=== PATIENT | male | born 1990 | race Caucasian/White ===

== ENCOUNTER 2017-01-12 10:23 | Observation (INO) | payer OTHER ==
[~2017-01-12] VITALS: Ht 170.2 cm; Wt 65.0 kg
[2017-01-12 10:56] LABS: DAU SCREEN DISCLAIMER
[2017-01-12 11:03] LABS: BLOOD UREA NITROGEN 11 mg/dL (7-18)
[2017-01-12 11:05] LABS: HEMOGLOBIN 18.5 g/dL (13.7-18.0); WHITE BLOOD COUNT 19.8 x10^3/uL (3.4-10)
[2017-01-12 11:06] LABS: ACETAMINOPHEN < 2 mcg/mL (10-30); DIFF TOTAL CELLS COUNTED 100 CELL DIFF
[2017-01-12 11:07] LABS: VERIFY COUNTS? YES
[2017-01-12 11:08] LABS: LARGE PLATELETS 2+
[2017-01-12] MEDS ORDERED: MIDAZOLAM 1 MG/ML, 5ML ONE (13:18)
[2017-01-12] MEDS ORDERED: ZIPRASIDONE 20 MG INJ IM ONE (14:00)
[2017-01-12] MEDS ORDERED: MIDAZOLAM 1 MG/ML, 5ML IVPush ONE (14:00)
[2017-01-12] MEDS ORDERED: HALOPERIDOL 5 MG/ML IM PRN (15:00)
[2017-01-12] MEDS ORDERED: LORazepam 2 MG/ML, 1ML IM PRN (15:00)
[2017-01-12 15:04] LABS: ASPARTATE AMINO TRANSFERASE 73 U/L (15-37); BLOOD UREA NITROGEN 13 mg/dL (7-18)
[2017-01-12 15:30] LABS: HEMATOCRIT 50.5 % (39.2-51.8); HEMOGLOBIN 17.6 g/dL (13.7-18.0); WHITE BLOOD COUNT 14.6 x10^3/uL (3.4-10)
[2017-01-12 15:31] LABS: LARGE PLATELETS 2+
[2017-01-12] MEDS ORDERED: HALOPERIDOL 5 MG/ML ONE (16:24)
[2017-01-12] MEDS ORDERED: LORazepam 1MG TABLET ONE (18:32)
[2017-01-12] MEDS: LORazepam 1MG TABLET PO PRN (19:06)
[2017-01-12] MEDS ORDERED: OLANZAPINE 5 MG TABLET PO SCH (21:00)
[2017-01-13] MEDS ORDERED: DIPHENHYDRAMINE 50 MG CAPSULE PO PRN (01:00)
[2017-01-13] MEDS ORDERED: ZIPRASIDONE 20 MG INJ IM PRN (01:00)
[2017-01-13] MEDS ORDERED: ONDANSETRON ODT 4 MG PO PRN (01:00)
[2017-01-13 02:24] VITALS: BP 125/83
[2017-01-13] MEDS: OLANZAPINE 5 MG TABLET PO SCH ×4 (02:27→20:33)
[2017-01-13 08:06] VITALS: BP 138/85
[2017-01-13] MEDS: POTASSIUM CHLORIDE 20 MEQ TAB.ER.PRT PO SCH ×2 (09:05→16:50)
[2017-01-13] MEDS: LORazepam 1MG TABLET PO PRN (09:18)
[2017-01-13] MEDS: ACETAMINOPHEN 325 MG TABLET PO PRN ×2 (09:18→20:32)
[2017-01-13 19:58] VITALS: BP 127/77
[2017-01-14 06:12] LABS: HEMATOCRIT 48.4 % (39.2-51.8); HEMOGLOBIN 16.5 g/dL (13.7-18.0); WHITE BLOOD COUNT 7.4 x10^3/uL (3.4-10)
[2017-01-14 06:22] LABS: BLOOD UREA NITROGEN 17 mg/dL (7-18)
[2017-01-14 06:25] LABS: ASPARTATE AMINO TRANSFERASE 154 U/L (15-37)
[2017-01-14 08:26] VITALS: BP 119/79
[2017-01-14] MEDS: OLANZAPINE 5 MG TABLET PO SCH ×2 (08:27→20:23)
[2017-01-14 20:00] VITALS: BP 109/75
[2017-01-15 07:26] VITALS: BP 136/76
[2017-01-15 07:31] LABS: BLOOD UREA NITROGEN 15 mg/dL (7-18)
[2017-01-15 07:37] LABS: ASPARTATE AMINO TRANSFERASE 117 U/L (15-37)
[2017-01-15 08:28] LABS: DIFF TOTAL CELLS COUNTED 100 CELL DIFF; HEMATOCRIT 48.5 % (39.2-51.8); HEMOGLOBIN 16.7 g/dL (13.7-18.0); WHITE BLOOD COUNT 7.6 x10^3/uL (3.4-10)
[2017-01-15 08:33] LABS: VERIFY COUNTS? YES
[2017-01-15 08:34] LABS: LARGE PLATELETS 2+
[2017-01-15] MEDS: PALIPERIDONE 3 MG TAB.ER.24 PO SCH ×2 (08:56→11:31)
[2017-01-15 19:26] VITALS: BP 123/89
[2017-01-16 08:00] VITALS: BP 121/80
[2017-01-16] MEDS: PALIPERIDONE 3 MG TAB.ER.24 PO SCH (08:10)
[2017-01-16] MEDS ORDERED: GADOBUTROL 7.5 MMOL/7.5 ML PFS ONE (12:31)
[2017-01-16 19:16] VITALS: BP 114/77
[2017-01-17 08:14] VITALS: BP 126/77
[2017-01-17] MEDS: PALIPERIDONE 3 MG TAB.ER.24 PO SCH (09:02)
[2017-01-17 15:39] LABS: HEMATOCRIT 48.4 % (39.2-51.8); HEMOGLOBIN 16.6 g/dL (13.7-18.0); WHITE BLOOD COUNT 5.7 x10^3/uL (3.4-10)
[2017-01-17 15:44] LABS: BLOOD UREA NITROGEN 13 mg/dL (7-18)
[2017-01-17 15:48] LABS: ASPARTATE AMINO TRANSFERASE 88 U/L (15-37)
[2017-01-17 20:00] VITALS: BP 114/66
[2017-01-18 05:50] LABS: BLOOD UREA NITROGEN 16 mg/dL (7-18)
[2017-01-18 05:58] LABS: ASPARTATE AMINO TRANSFERASE 74 U/L (15-37)
[2017-01-18 06:06] LABS: HEMOGLOBIN 16.1 g/dL (13.7-18.0); WHITE BLOOD COUNT 7.2 x10^3/uL (3.4-10)
[2017-01-18 08:45] VITALS: BP 122/76
[2017-01-18] MEDS: THIAMINE 100MG TABLET PO SCH (09:11)
[2017-01-18] MEDS: FOLIC ACID 1 MG TABLET PO SCH (09:11)
[2017-01-18] MEDS: PALIPERIDONE 3 MG TAB.ER.24 PO SCH (09:11)
[2017-01-18 19:58] VITALS: BP 114/80
[2017-01-19 08:29] VITALS: BP 119/67
[2017-01-19] MEDS: THIAMINE 100MG TABLET PO SCH (09:18)
[2017-01-19] MEDS: FOLIC ACID 1 MG TABLET PO SCH (09:18)
[2017-01-19] MEDS: PALIPERIDONE 3 MG TAB.ER.24 PO SCH (09:19)
[2017-01-19 19:13] VITALS: BP 119/82
[2017-01-20 05:37] LABS: HEMATOCRIT 45.9 % (39.2-51.8); HEMOGLOBIN 15.9 g/dL (13.7-18.0); WHITE BLOOD COUNT 7.7 x10^3/uL (3.4-10)
[2017-01-20 05:59] LABS: ASPARTATE AMINO TRANSFERASE 32 U/L (15-37); BLOOD UREA NITROGEN 14 mg/dL (7-18)
[2017-01-20 07:54] VITALS: BP 115/72
[2017-01-20] MEDS: THIAMINE 100MG TABLET PO SCH (09:15)
[2017-01-20] MEDS: PALIPERIDONE 3 MG TAB.ER.24 PO SCH (09:15)
[2017-01-20] MEDS: FOLIC ACID 1 MG TABLET PO SCH (09:15)
[2017-01-20] MEDS ORDERED: INVEGA SUSTENNA 234 MG IM ONE (12:00)
== END 2017-01-20 14:00 ==
LOC: ED 13:22 → EDIP 13:30 → 3E 01-13 01:31
PROVIDERS: ADMIT Hospitalist; ATTEND Family Medicine
DX: R45.851 Suicidal ideations (principal); R45.850 Homicidal ideations; F20.9 Schizophrenia, unspecified; E87.6 Hypokalemia; D72.829 Elevated white blood cell count, unspecified; N17.9 Acute kidney failure, unspecified; K76.9 Liver disease, unspecified; F32.9 Major depressive disorder, single episode, unspecified; D69.6 Thrombocytopenia, unspecified; F17.200 Nicotine dependence, unspecified, uncomplicated
CPT/HCPCS: 36415; 70450; 70553; 76700; 80048; 80053; 80307; 80329; 81001; 82040; 82140; 82550; 83735; 84443; 85025; 85610; 85651; 86704; 86706; 86708; 86709; 86803; 87340; 96372; 96374; 99285; A9585; G0378; J1630; J2250; J3486; G0479; G0480

== ENCOUNTER 2017-07-02 19:50 | Emergency (ER) | payer SELFPAY ==
[~2017-07-02] VITALS: Ht 172.7 cm; Wt 68.0 kg
[2017-07-02] MEDS ORDERED: QUET25TA5 PO (20:37)
[2017-07-02 21:02] LABS: ALBUMIN 3.8 g/dL (3.4-5.0); ANION GAP 11 mmol/L (5-15); CALCIUM 8.4 mg/dL (8.5-10.1); CHLORIDE 97 mmol/L (98-107)
[2017-07-02 21:06] LABS: ALANINE AMINOTRANSFERASE 68 U/L (12-78); ALKALINE PHOSPHATASE 90 U/L (45-117); BILIRUBIN,TOTAL 0.6 mg/dL (0.2-1.0); CREATININE 1.02 mg/dL (0.7-1.3); TOTAL PROTEIN 7.1 g/dL (6.4-8.2)
[2017-07-02 21:14] LABS: MEAN CORPUSCULAR HEMOGLOBIN 30.4 pg (27.5-34.5); MEAN CORPUSCULAR HGB CONC 34.3 g/dL (33.2-36.2); MEAN CORPUSCULAR VOLUME 88.6 fL (81-97); MEAN PLATELET VOLUME 11.6 fL (7.4-10.4); PLATELET COUNT 171 x10^3/uL (130-400); RED BLOOD COUNT 5.02 x10^6/uL (4.38-5.82)
[2017-07-02 21:16] LABS: BASOPHILS # (AUTO) 0.04 x10^3/uL (0-0.1); BASOPHILS % (AUTO) 0 % (0-1); EOSINOPHILS # (AUTO) 0.01 x10^3/uL (0-0.4); EOSINOPHILS % (AUTO) 0 % (1-7); LYMPHOCYTES # (AUTO) 1.14 x10^3/uL (1-3.4); LYMPHOCYTES % (AUTO) 10 % (22-44); MD SCAN; MONOCYTES # (AUTO) 0.66 x10^3/uL (0.2-0.8); MONOCYTES % (AUTO) 6 % (2-9); NEUTROPHILS # (AUTO) 9.91 x10^3/uL (1.8-6.8); NEUTROPHILS % (AUTO) 84 % (42-75)
[2017-07-02 21:18] LABS: SALICYLATE LEVEL < 1.7 mg/dL (2.8-20.0)
[2017-07-02 21:20] LABS: ACETAMINOPHEN < 2 mcg/mL (10-30)
[2017-07-02 22:13] LABS: AMPHETAMINE SCREEN, URINE Negative (Negative); BARBITURATE SCREEN, URINE Negative (Negative); BENZODIAZEPINE SCREEN, URINE Negative (Negative); CANNABINOID SCREEN, URINE Negative (Negative); COCAINE SCREEN, URINE Negative (Negative); METHADONE SCREEN, URINE Negative (Negative); OPIATE SCREEN, URINE Positive (Negative)
[2017-07-03 03:41] VITALS: BP 132/84
== END 2017-07-03 03:45 | disposition home or self-care (01) ==
LOC: ED 21:16
DX: F32.0 Major depressive disorder, single episode, mild (principal); F11.10 Opioid abuse, uncomplicated; F10.20 Alcohol dependence, uncomplicated; Z60.9 Problem related to social environment, unspecified; Z91.14 Patient's other noncompliance with medication regimen; Z72.9 Problem related to lifestyle, unspecified
CPT/HCPCS: 36415; 80053; 80307; 80329; 85025; 99284; G0480